=== PATIENT | female | born 1995 ===

== ENCOUNTER 2018-05-01 18:43 | Emergency (ER) | payer OTHER ==
[~2018-05-01] VITALS: Ht 170.2 cm; Wt 59.9 kg
[2018-05-01] MEDS ORDERED: HYOS.125 SL (19:55)
[2018-05-01] MEDS ORDERED: ONDA4ODT MM (19:55)
== END 2018-05-01 20:07 | disposition home or self-care (01) ==
LOC: ER 18:43
DX: R19.7 Diarrhea, unspecified (principal); R11.0 Nausea; R10.9 Unspecified abdominal pain; Z91.040 Latex allergy status; Z88.8 Allergy status to other drugs, medicaments and biological substances
CPT/HCPCS: 99282